=== PATIENT | female | born 1945 | race Caucasian/White ===

== ENCOUNTER → 2020-10-31 | Outpatient (CLI) | payer MEDICARE, BC | LOC: MAMO 10:07 | DX: Z12.31 Encounter for screening mammogram for malignant neoplasm of breast (principal) | CPT/HCPCS: 77063; 77067 ==

== ENCOUNTER → 2020-12-06 | Outpatient (CLI) | payer MEDICARE, BC | LOC: MAMO 14:08 | DX: R92.8 Other abnormal and inconclusive findings on diagnostic imaging of breast (principal); Z78.0 Asymptomatic menopausal state | CPT/HCPCS: 76641-LT; 77065; G0279 ==